=== PATIENT | male | born 1995 | race Caucasian/White ===

== ENCOUNTER 2017-07-23 16:16 | Emergency (ER) | payer OTHER, BC ==
--- NOTE | 2017-07-23 16:45 | ER Document Report ---
ED General - General Chief Complaint: Dizziness Stated Complaint: HEAT EXHAUSTION Time Seen by Provider: 07/23/17 16:30 Mode of Arrival: Medic Information source: Patient Notes: 22-year-old male brought to the emergency department by EMS for dizziness, nausea, upper extremity muscle cramping. 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 He states that during the training he began feeling weak, dizzy, having cramping in his bilateral upper extremities. He states that he has been consuming bottles of water today but has only urinated once. Patient thinks that he might be dehydrated. Patient denies any vision changes, speech changes, numbness, tingling, weakness, chest pain, shortness of breath, abdominal pain, nausea, vomiting, diarrhea, constipation. EMS arrived and patient had 2 L of fluid in route. He had 1 L of lactated Ringer's and 1 L of normal saline. Patient states that he is feeling much better in the ER. He states that his symptoms have completely resolved. TRAVEL OUTSIDE OF THE [place] IN LAST 30 DAYS: No - HPI Patient complains to provider of: weakness, nausea, upper extremity muscle cramping Onset: Just prior to arrival Onset/Duration: Sudden Quality of pain: No pain Severity: None Pain Level: Denies Associated symptoms: Body/muscle aches, Headache, Nausea, Weakness. denies: Chest pain, Diarrhea, Fever, Hurts to breath, Vomiting, Shortness of breath Exacerbated by: Denies Relieved by: Other - fluids Similar symptoms previously: No Recently seen / treated by doctor: No - Related Data Allergies/Adverse Reactions: No Known Allergies Allergy (Verified 07/23/17 16:48) Past Medical History - General Information source: Patient - Social History Smoking Status: Never Smoker Family History: None, Reviewed & Not Pertinent Review of Systems - Review of Systems Constitutional: Weakness EENT: No symptoms reported Cardiovascular: No symptoms reported Respiratory: No symptoms reported Gastrointestinal: Nausea Genitourinary: No symptoms reported Musculoskeletal: Other - upper extremity muscle cramping Skin: No symptoms reported Neurological/Psychological: Weakness, Headaches Physical Exam - Vital signs Vitals: BP 127/71 H 07/23/17 16:19 Interpretation: Normal - Notes Notes: PHYSICAL EXAMINATION: GENERAL: Well-appearing, well-nourished and in no acute distress. HEAD: Atraumatic, normocephalic. EYES: Pupils equal round and reactive to light, extraocular movements intact, sclera anicteric, conjunctiva are normal. ENT: Nares patent, oropharynx clear without exudates. Moist mucous membranes. NECK: Normal range of motion, supple without lymphadenopathy LUNGS: Breath sounds clear to auscultation bilaterally and equal. No wheezes rales or rhonchi. HEART: Regular rate and rhythm without murmurs ABDOMEN: Soft, nontender, nondistended abdomen. No guarding, no rebound. No masses appreciated. Musculoskeletal: Normal range of motion, no pitting or edema. No cyanosis. NEUROLOGICAL: Cranial nerves grossly intact. Normal speech, normal gait. Normal sensory, motor exams PSYCH: Normal mood, normal affect. SKIN: Warm, Dry, normal turgor, no rashes or lesions noted. Course - Re-evaluation Re-evalutation: 07/23/17 18:11 Patient's vital signs have been stable. She has no complaints in the emergency department. Labs obtained. Patient's blood sugar is 63. Patient was given food in the emergency department. The patient's potassium was also slightly low. He was given 20 mEq of potassium chloride. I will discharge patient home. Patient instructed to follow-up with his primary care physician this week , to take [id number] medication as needed for symptom relief, and to return to emergency department for any worsening symptoms. Patient is agreeable with plan of care. - Vital Signs Vital signs: Temp Pulse Resp BP Pulse Ox 97.7 F 76 13 112/81 99 07/23/17 16:47 07/23/17 16:47 07/23/17 17:00 07/23/17 17:00 07/23/17 17:00 - Laboratory Result Diagrams: 07/23/17 16:38 Laboratory results interpreted by me: 07/23/17 16:38 Potassium 3.5 L Chloride 109 H BUN 25 H Glucose 63 L Discharge - Discharge Clinical Impression: Heat exhaustion Qualifiers: Encounter type: initial encounter Qualified Code(s): T67.5XXA - Heat exhaustion , unspecified, initial encounter Condition: Stable Disposition: HOME, SELF-CARE Instructions: Dehydration ([facility]), Heat Exhaustion ([facility]) Referrals: WENDY CARRASQUILLO MD [[facility]] - Follow up as needed
[2017-07-23 17:12] LABS: ALANINE AMINOTRANSFERASE 21 U/L (21-72); ALBUMIN 4.2 g/dL (3.5-5.0); ALKALINE PHOSPHATASE 54 U/L (38-126); ANION GAP 14 (5-19); ASPARTATE AMINO TRANSFERASE 26 U/L (17-59); BILIRUBIN,DIRECT 0.3 mg/dL (0.0-0.4); BILIRUBIN,TOTAL 0.7 mg/dL (0.2-1.3); BLOOD UREA NITROGEN 25 mg/dL (7-20); CALCIUM 9.6 mg/dL (8.4-10.2); CARBON DIOXIDE 22 mmol/L (22-30); CHLORIDE 109 mmol/L (98-107); GLUCOSE 63 mg/dL (75-110); POTASSIUM 3.5 mmol/L (3.6-5.0); SODIUM 144.5 mmol/L (137-145); TOTAL PROTEIN 6.8 g/dL (6.3-8.2)
[2017-07-23] MEDS ORDERED: POTASSIUM CHLORIDE 10 MEQ TABLET.SA PO ONE (18:10)
[2017-07-23 18:27] VITALS: BP 114/78
== END 2017-07-23 18:27 | disposition home or self-care (01) ==
LOC: ER 16:16
DX: T67.5XXA Heat exhaustion, unspecified, initial encounter (principal); X30.XXXA Exposure to excessive natural heat, initial encounter; Y93.89 Activity, other specified; Y99.0 Civilian activity done for income or pay; R42 Dizziness and giddiness; R11.0 Nausea; R25.2 Cramp and spasm; R51 Headache; R53.1 Weakness
CPT/HCPCS: 36415; 80053; 83735; 99284

== ENCOUNTER 2018-09-26 18:02 | Emergency (ER) | payer BC, OTHER ==
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
[2018-09-26 19:14] VITALS: BP 122/82
== END 2018-09-26 19:24 | disposition home or self-care (01) ==
LOC: ER 18:02
DX: T67.5XXA Heat exhaustion, unspecified, initial encounter (principal); R42 Dizziness and giddiness; R11.0 Nausea; R10.9 Unspecified abdominal pain; X30.XXXA Exposure to excessive natural heat, initial encounter; Y93.89 Activity, other specified; Y99.0 Civilian activity done for income or pay
CPT/HCPCS: 99284